=== PATIENT | female | born 1960 ===

== ENCOUNTER 2023-09-30 12:36 | Outpatient (CLI) | payer BC | END 2023-09-30 23:59 | disposition home or self-care (01) | LOC: MRI 12:36 | PROVIDERS: ATTEND Family Medicine Sports Medicine | DX: M51.17 Intervertebral disc disorders with radiculopathy, lumbosacral region (principal); M48.061 Spinal stenosis, lumbar region without neurogenic claudication; M48.8X8 Other specified spondylopathies, sacral and sacrococcygeal region | CPT/HCPCS: 72148 ==